=== PATIENT | female | born 1970 | race Two or more races ===

== ENCOUNTER → 2024-06-23 | Outpatient (REF) | LOC: M LAB 15:52 | PROVIDERS: ATTEND Nurse Practitioner Adult Health | DX: Z01.89 Encounter for other specified special examinations (principal) ==

== ENCOUNTER → 2024-08-23 | Outpatient (CLI) | payer OTHER | LOC: M WUC 12:00 | PROVIDERS: ATTEND Nurse Practitioner Family | DX: M17.12 Unilateral primary osteoarthritis, left knee (principal); M25.562 Pain in left knee ==

== ENCOUNTER → 2024-10-04 | Outpatient (REF) | payer OTHER, MEDICAID ==
[2024-10-04 17:40] LABS: HEMATOCRIT 38.9 % (36.0-47.0); HEMOGLOBIN 13.8 g/dl (12.0-15.5); MEAN CORPUSCULAR HEMOGLOBIN 29.2 pg (27.0-33.0); MEAN CORPUSCULAR HGB CONC 35.5 g/dl (32.0-36.5); MEAN CORPUSCULAR VOLUME 82.2 fl (80.0-96.0); PLATELET COUNT, AUTOMATED 327 10^3/uL (150-450); RED BLOOD COUNT 4.73 10^6/uL (4.00-5.40); WHITE BLOOD COUNT 5.1 10^3/uL (4.0-10.0)
[2024-10-04 19:03] LABS: BILIRUBIN,TOTAL 0.6 MG/DL (0.3-1.2); CALCIUM LEVEL 9.4 MG/DL (8.5-10.1); CHOLESTEROL RISK RATIO 3.33 (<5); CREATININE FOR GFR 0.78 MG/DL (0.55-1.30); GLOMERULAR FILTRATION RATE 89.1 (>51); HDL CHOLESTEROL 53.9 MG/DL (>40); LDL CHOLESTEROL 94.1 MG/DL (<100); NON-HDL-C 126.1 MG/DL; POTASSIUM SERUM 4.6 MMOL/L (3.5-5.1); THYROID STIMULATING HORMONE 0.767 uIU/ML (0.55-4.78); TOTAL 25(OH) VITAMIN D 40.2 NG/ML (20.0-100.0); TOTAL PROTEIN 7.2 G/DL (5.7-8.2)
[2024-10-04 19:44] LABS: HEMOGLOBIN A1c 5.6 % (4.0-6.0)
== END ==
LOC: M LAB REF 17:16
PROVIDERS: ATTEND Student in an Organized Health Care Education/Training Program
DX: Z00.01 Encounter for general adult medical examination with abnormal findings (principal)

== ENCOUNTER → 2025-02-23 | Outpatient (REF) ==
[2025-02-23 13:17] LABS: SOFIA COVID ANTIGEN NEGATIVE (NEGATIVE)
== END ==
LOC: M EMP 12:32
PROVIDERS: ATTEND Family Medicine
DX: Z11.52 Encounter for screening for COVID-19 (principal)